=== PATIENT | male | born 1945 | race Caucasian/White ===

== ENCOUNTER 2021-03-06 01:55 | Emergency (ER) | payer MEDICARE, OTHER ==
[2021-03-06 02:33] LABS: HEMOGLOBIN 15.5 gm/dl (14.0-17.5); RED BLOOD COUNT 4.6 M/UL (4.20-5.50); WHITE BLOOD COUNT 10.2 K/UL (4.5-11.0)
== END 2021-03-06 08:00 | disposition short-term general hospital (02) ==
LOC: ER1 01:55
PROVIDERS: Physician Assistant
DX: I21.4 Non-ST elevation (NSTEMI) myocardial infarction (principal); I25.10 Atherosclerotic heart disease of native coronary artery without angina pectoris; Z79.82 Long term (current) use of aspirin; Z79.899 Other long term (current) drug therapy; Z95.5 Presence of coronary angioplasty implant and graft; Z20.822 Contact with and (suspected) exposure to COVID-19
CPT/HCPCS: 71045; 80053; 82550; 82553; 83874; 83880; 84484; 85025; 85610; 85730; 93005; 96374; 99285; J1644; J2405; U0002

== ENCOUNTER 2021-05-30 20:50 | Observation (INO) | payer MEDICARE, OTHER ==
[~2021-05-30] VITALS: Ht 188 cm; Wt 86.2 kg
[2021-05-30 21:49] LABS: HEMOGLOBIN 14.7 gm/dl (14.0-17.5); RED BLOOD COUNT 4.64 M/UL (4.20-5.50); WHITE BLOOD COUNT 6.3 K/UL (4.5-11.0)
[2021-05-31 07:18] LABS: HEMOGLOBIN 14.4 gm/dl (14.0-17.5); RED BLOOD COUNT 4.38 M/UL (4.20-5.50); WHITE BLOOD COUNT 6.4 K/UL (4.5-11.0)
[2021-05-31 08:16] LABS: BUN/CREATININE RATIO 18 (0-10)
[2021-05-31] MEDS ORDERED: PROTONIX 40 MG40 M1 PO (09:50)
[2021-05-31] MEDS ORDERED: EUTHYROX75 MCG PO (09:51)
[2021-05-31] MEDS ORDERED: COZAAR25 MG PO (09:51)
[2021-05-31] MEDS ORDERED: CRESTOR40 MG PO (09:51)
[2021-05-31] MEDS ORDERED: NITROGLYCERIN0.4 MG SL (09:52)
[2021-05-31] MEDS ORDERED: EFFIENT10 MG PO (09:52)
[2021-05-31] MEDS ORDERED: FLOMAX 0.4 MG0.4 MG PO (09:52)
[2021-05-31] MEDS ORDERED: ZINC50 M1 PO (09:54)
[2021-05-31] MEDS ORDERED: VITAMIN C500 M4 PO (09:54)
[2021-05-31] MEDS ORDERED: LOPRESSOR 25 MG25 MG PO (12:13)
== END 2021-05-31 12:30 | disposition home or self-care (01) ==
LOC: ER1 20:50 → CDU 05-31 08:28
PROVIDERS: Emergency Medicine; ADMIT Internal Medicine
DX: R00.0 Tachycardia, unspecified (principal); I25.10 Atherosclerotic heart disease of native coronary artery without angina pectoris; I48.0 Paroxysmal atrial fibrillation; I10 Essential (primary) hypertension; E78.5 Hyperlipidemia, unspecified; K21.9 Gastro-esophageal reflux disease without esophagitis; I25.2 Old myocardial infarction; E03.9 Hypothyroidism, unspecified; H91.90 Unspecified hearing loss, unspecified ear; Z95.5 Presence of coronary angioplasty implant and graft; Z87.891 Personal history of nicotine dependence; Z88.8 Allergy status to other drugs, medicaments and biological substances; Z79.02 Long term (current) use of antithrombotics/antiplatelets; Z79.899 Other long term (current) drug therapy; Z20.822 Contact with and (suspected) exposure to COVID-19
CPT/HCPCS: 71045; 80048; 80053; 82550; 82553; 83605; 83874; 83880; 84484; 85025; 85379; 85610; 85730; 93005; 96374; 99285; G0378; U0002

== ENCOUNTER → 2022-02-18 | Outpatient (CLI) | payer MEDICARE, OTHER ==
[~2022-02-18] MED LIST: COZAAR25 MG PO; CRESTOR40 MG PO; EFFIENT10 MG PO; EUTHYROX75 MCG PO; FLOMAX 0.4 MG0.4 MG PO; LOPRESSOR 25 MG25 MG PO; NITROGLYCERIN0.4 MG SL; PROTONIX 40 MG40 M1 PO; VITAMIN C500 M4 PO; ZINC50 M1 PO
== END ==
LOC: LAB 14:27
DX: K40.20 Bilateral inguinal hernia, without obstruction or gangrene, not specified as recurrent (principal); Z20.822 Contact with and (suspected) exposure to COVID-19
CPT/HCPCS: U0002